=== PATIENT | male | born 1980 | race Hispanic/Latino ===

== ENCOUNTER 2022-09-13 18:01 | Inpatient (IN) | payer SELFPAY ==
[2022-09-13 21:40] VITALS: BMI 27.8
[2022-09-13 22:59] LABS: SARS-CoV-2 NAA Rapid Test Not Detected (NotDetected)
[2022-09-13] MEDS ORDERED: Acetaminophen 325 MG TAB PO PRN (23:17)
[2022-09-13] MEDS ORDERED: Dextrose 5% in Water 1,000 ML IV PRN (23:17)
[2022-09-13] MEDS ORDERED: Ipratropium/Albuterol 3 ML NEB NEB PRN (23:17)
[2022-09-13] MEDS ORDERED: hydrALAZINE 20 MG/ML VIAL SLOW IVP PRN (23:17)
[2022-09-13] MEDS ORDERED: Ondansetron PF 4 MG/2 ML Vial IVP PRN (23:17)
[2022-09-13] MEDS ORDERED: Dextrose 50% Abboject 50 ML SYRINGE SLOW IVP PRN (23:17)
[2022-09-13] MEDS ORDERED: Promethazine HCl 25 MG/ML VIAL IM PRN (23:17)
[2022-09-13] MEDS ORDERED: CEFAZOLIN 2 GM in Sodium Chloride 0.9% 100 ML IVPB SCH (23:30)
[2022-09-13] MEDS: Sodium Chloride 0.9% 1,000 ML IV SCH (23:42)
[2022-09-13] MEDS: Morphine 2 MG/ML VIAL SLOW IVP PRN (23:50)
[2022-09-14] MEDS: Morphine 2 MG/ML VIAL SLOW IVP PRN ×4 (03:33→19:56)
[2022-09-14 06:14] LABS: #Basophils 0.1 thou/uL (0.0-0.2); #Eosinphils 0.6 thou/uL (0.0-0.7); #Monocytes 0.6 thou/uL (0.11-0.59); #Neutrophils 3.8 thou/uL (1.40-6.50); %Basophils 0.7 % (0.0-1.0); %Eosinophils 7.1 % (0.0-10.0); %Lymphocytes 44.3 % (21.0-51.0); %Monocytes 6.6 % (0.0-10.0); %Neutrophils 41.3 % (42.0-75.0); Hemoglobin 14.5 g/dL (14.0-18.0); Mean Corpuscular HGB CONC 32.4 g/dL (32.0-36.0); Mean Corpuscular Hemoglobin 30.1 pg (27.0-31.0); Mean Corpuscular Volume 92.8 fl (78.0-98.0); Mean Platelet Volume 8.2 fL (7.4-10.4); Platelet Count 227 10x3/uL (130-400); RBC Distribution Width 11.9 % (11.5-14.5); Red Blood Cell (RBC) Count 4.81 mill/uL (4.70-6.10); White Blood Cell (WBC) Count 9.1 10x3/uL (4.8-10.8)
[2022-09-14] MEDS ORDERED: Dexamethasone 20 MG/5 ML VIAL ONE (06:30)
[2022-09-14] MEDS ORDERED: Ondansetron PF 4 MG/2 ML Vial ONE (06:30)
[2022-09-14] MEDS ORDERED: PHENYLEPHRINE-NS 100 MCG/ML 10 ML SYRINGE ONE (06:30)
[2022-09-14] MEDS ORDERED: NEOSTIGMINE 3 MG/3 ML SYR 3 MG/3 ML SYRINGE ONE (06:30)
[2022-09-14] MEDS ORDERED: ePHEDrine 50 MG/ML VIAL ONE (06:30)
[2022-09-14] MEDS ORDERED: Lidocaine 1% PF 5 ML VIAL ONE (06:30)
[2022-09-14] MEDS ORDERED: Rocuronium Bromide 10 MG/ML (10ML VIAL) ONE (06:30)
[2022-09-14] MEDS ORDERED: PROPOFOL 200 MG/20 ML VIAL ONE (06:30)
[2022-09-14] MEDS ORDERED: Glycopyrrolate 0.2 MG/ML 5 ML SYRINGE ONE (06:30)
[2022-09-14] MEDS ORDERED: Bupivacaine/Epinephrine 0.25% 30 ML VIAL ONE (06:32)
[2022-09-14 06:33] LABS: Anion Gap 11 mmol/L (10-20); BUN (Urea Nitrogen) 9 mg/dL (8.9-20.6); Calc. Creatinine Clearance 168 mL/min (70-130); Calcium 9.3 mg/dL (7.8-10.44); Carbon Dioxide 30 mmol/L (22-29); Chloride 106 mmol/L (98-107); Estimated GFR 118; Glucose 101 mg/dL (70-105); Potassium 4.6 mmol/L (3.5-5.1); Sodium 142 mmol/L (136-145)
[2022-09-14] MEDS ORDERED: fentaNYL PF 100 MCG/2 ML SYRINGE ONE ×2 (06:57→07:17)
[2022-09-14] MEDS ORDERED: SUGAMMADEX SODIUM 200 MG/2 ML VIAL ONE (06:58)
[2022-09-14] MEDS ORDERED: Dexmedetomidine 200 MCG/2 ML VIAL ONE (06:58)
[2022-09-14] MEDS ORDERED: CEFAZOLIN 2 GM VIAL ONE (07:03)
[2022-09-14] MEDS ORDERED: Sodium Chloride 0.9% 100 ML ONE (07:03)
[2022-09-14] MEDS ORDERED: Midazolam HCl 2 mg/2 ml Vial ONE (07:17)
[2022-09-14] MEDS ORDERED: Methocarbamol 1 GM in Sodium Chloride 0.9% 100 ML IVPB PRN (09:33)
[2022-09-14] MEDS ORDERED: Promethazine HCl 25 MG/ML VIAL IM PRN (09:36)
[2022-09-14] MEDS ORDERED: HYDROmorphone 2 MG/ML VIAL SLOW IVP PRN (09:36)
[2022-09-14] MEDS ORDERED: Ondansetron HCl/PF 4 MG/2 ML Vial IVP PRN (09:36)
[2022-09-14] MEDS ORDERED: Fentanyl 100 MCG/2 ML VIAL ONE (09:55)
[2022-09-14] MEDS: Famotidine 20 MG TAB PO SCH ×2 (10:57→21:05)
[2022-09-14] MEDS: Sodium Chloride 0.9% 1,000 ML IV SCH ×2 (10:59→21:04)
[2022-09-15] MEDS: Morphine 2 MG/ML VIAL SLOW IVP PRN ×2 (00:49→05:49)
[2022-09-15] MEDS: Sodium Chloride 0.9% 1,000 ML IV SCH (05:53)
[2022-09-15 06:25] LABS: #Lymphocytes 2.6 thou/uL (1.20-3.40); #Monocytes 0.8 thou/uL (0.11-0.59); #Neutrophils 7.9 thou/uL (1.40-6.50); %Basophils 0.4 % (0.0-1.0); %Eosinophils 0.1 % (0.0-10.0); %Lymphocytes 22.9 % (21.0-51.0); %Neutrophils 69.7 % (42.0-75.0); Hemoglobin 12.7 g/dL (14.0-18.0); Mean Corpuscular HGB CONC 32.8 g/dL (32.0-36.0); Mean Corpuscular Hemoglobin 30.4 pg (27.0-31.0); Mean Corpuscular Volume 92.6 fl (78.0-98.0); Mean Platelet Volume 8.6 fL (7.4-10.4); Platelet Count 218 10x3/uL (130-400); RBC Distribution Width 11.9 % (11.5-14.5); Red Blood Cell (RBC) Count 4.18 mill/uL (4.70-6.10); White Blood Cell (WBC) Count 11.4 10x3/uL (4.8-10.8)
[2022-09-15 06:51] LABS: Anion Gap 9 mmol/L (10-20); BUN (Urea Nitrogen) 10 mg/dL (8.9-20.6); Calc. Creatinine Clearance 168 mL/min (70-130); Calcium 8.5 mg/dL (7.8-10.44); Carbon Dioxide 29 mmol/L (22-29); Chloride 106 mmol/L (98-107); Estimated GFR 118; Glucose 99 mg/dL (70-105); Magnesium 1.6 mg/dL (1.6-2.6); Phosphorus 3.5 mg/dL (2.3-4.7); Potassium 3.6 mmol/L (3.5-5.1); Sodium 140 mmol/L (136-145)
[2022-09-15] MEDS: Famotidine 20 MG TAB PO SCH (09:16)
[2022-09-15] MEDS ORDERED: Magnesium 2 GM/50 ML(in water) 2 GM in Premix Bag 1 BAG IVPB SCH (09:30)
[2022-09-15] MEDS ORDERED: traMADol HCl 50 MG TAB PO PRN (12:13)
[2022-09-15 17:16] VITALS: BP 117/79; TEMP 98
[2022-09-15] MEDS ORDERED: traMADol HCl 50 MG TAB PO SCH (18:00)
== END 2022-09-15 17:00 | disposition home or self-care (01) | DRG 355 ==
LOC: OBSVTOIN 18:01 → SURG B 18:01
PROVIDERS: ADMIT Surgery; ATTEND Surgery
PROC: 0WQF0ZZ Repair Abdominal Wall, Open Approach (ICD-10-PCS; principal; 2022-09-14)
DX: K42.0 Umbilical hernia with obstruction, without gangrene (principal); Z20.822 Contact with and (suspected) exposure to COVID-19; F41.9 Anxiety disorder, unspecified; Z79.899 Other long term (current) drug therapy
CPT/HCPCS: 36415; 80048; 83735; 84100; 85025; J1100; J1650; J2250; J2272; J2405; J2704; J3010; J3475; J3490; J7050; U0002

== ENCOUNTER 2023-08-07 20:51 | Inpatient (IN) | payer BC, SELFPAY ==
[~2023-08-07 20:51] MED LIST: Iopamidol-370 76% 500 ML MDV (1 ML CHARGE) ONE
[2023-08-07 21:49] LABS: Anion Gap 20 mmol/L (10-20); BUN (Urea Nitrogen) 12 mg/dL (8.9-20.6); Calc. Creatinine Clearance 0 mL/min (70-130); Calcium 8.6 mg/dL (7.8-10.44); Carbon Dioxide 18 mmol/L (22-29); Chloride 107 mmol/L (98-107); Estimated GFR 114; Glucose 134 mg/dL (70-105); Potassium 3.5 mmol/L (3.5-5.1); Sodium 141 mmol/L (136-145)
[2023-08-07 21:50] LABS: Acetaminophen Less than 10 mcg/mL (10.0-30.0); Alcohol 124.3 mg/dL (Less than 10); Lipase 30 U/L (8-78); Salicylate Less than 8.0 mg/dL (15.0-30.0)
[2023-08-07 21:51] LABS: INR-International Normal Ratio 1.1; PTT 26.5 sec (22.9-36.1); Prothrombin Time 14.5 sec (12.0-14.7)
[2023-08-07 21:52] LABS: Hematocrit 43.1 % (42.0-52.0); Hemoglobin 14.4 g/dL (14.0-18.0); Mean Corpuscular HGB CONC 33.4 g/dL (32.0-36.0); Mean Corpuscular Hemoglobin 30.3 pg (27.0-31.0); Mean Corpuscular Volume 90.5 fl (78.0-98.0); Mean Platelet Volume 10.5 fL (7.4-10.4); Platelet Count 324 10x3/uL (130-400); RBC Distribution Width 12.3 % (11.5-14.5); Red Blood Cell (RBC) Count 4.76 mill/uL (4.70-6.10); White Blood Cell (WBC) Count 19.5 10x3/uL (4.8-10.8)
[2023-08-07 21:53] LABS: Delete Auto Diff?? YES; Manual Diff?? YES
[2023-08-07 22:05] LABS: Critical Call Chem-Lactate NUR.NKE@2205
[2023-08-07 22:20] LABS: Band 1 % (5-11); Burr Cells SLIGHT = 2-5 cells HPF (0-1); CellaVision Operator ID lab.sh2; Eosinophils 4 % (0-10); Lymphocytes 28 % (21-51); Monocytes 2 % (0-10); Neutrophil 64 % (42-75); Platelet Adequacy Comment Platelets Normal; Poikilocytosis SLIGHT = 6-15 cells HPF (0-5); Polychromasia SLIGHT = 2-3 cells HPF (0-2); Smudge Cells 9.2 %; Tear Drops SLIGHT = 2-5 cells HPF (0-1); Total Cell Count 98
[2023-08-07] MEDS ORDERED: Boostrix 0.5 ML (Tdap) VIAL (>/=7 yrs of age) ONE (22:38)
[2023-08-07] MEDS ORDERED: Sodium Chloride 0.9% 100 ML ONE (22:38)
[2023-08-07] MEDS ORDERED: CEFAZOLIN 2 GM VIAL ONE (22:38)
[2023-08-07 22:45] LABS: Bacteria/HPF None Seen HPF (None Seen); Bilirubin Negative (Negative); Blood, Urine Trace (Negative); CAUTI Indications for Culture Alt mental st,lethar; Clarity Clear (Clear); Glucose, Urine (Dipstick) 30 mg/dL (Negative); Ketone, Urine Negative (Negative); Leukocyte Negative Leu/uL (Negative); Nitrite Negative (Negative); Protein, Urine (Dipstick) 30 mg/dL (Neg-Trace); RBC/HPF 0-3 HPF (0-3); Specific Gravity, Urine 1.026 (1.002-1.036); Squamous Epithelial None Seen HPF (0-3); Urobilinogen Normal mg/dL (Less than 2); WBC/HPF 0-3 HPF (0-3); pH, Urine 6.5 (5.0-9.0)
[2023-08-07] MEDS ORDERED: Tranexamic Acid 1,000 MG/10 ML VIAL ONE ×2 (22:45→22:46)
[2023-08-07 22:47] LABS: Urine Culture Reflex No No
[2023-08-07 22:51] LABS: Amphetamine Not Detected (NotDetected); Barbiturates Screen Not Detected (NotDetected); Benzodiazepine Screen Not Detected (NotDetected); Cocaine Metabolite Screen Not Detected (NotDetected); Methadone Not Detected (NotDetected); Methamphetamine Not Detected (NotDetected); Opiate Screen Not Detected (NotDetected); Oxycodone Screen Not Detected (NotDetected); Phencyclidine (PCP) Not Detected (NotDetected); THC/Cannabinoid Screen Not Detected (NotDetected); Tricyclic Screen Not Detected (NotDetected)
[2023-08-07 22:52] LABS: Hematocrit 41.9 % (42.0-52.0); Hemoglobin 14.1 g/dL (14.0-18.0); Manual Diff?? YES; Mean Corpuscular HGB CONC 33.7 g/dL (32.0-36.0); Mean Corpuscular Hemoglobin 30.5 pg (27.0-31.0); Mean Corpuscular Volume 90.7 fl (78.0-98.0); Mean Platelet Volume 9.8 fL (7.4-10.4); Platelet Count 270 10x3/uL (130-400); RBC Distribution Width 12.5 % (11.5-14.5); Red Blood Cell (RBC) Count 4.62 mill/uL (4.70-6.10); White Blood Cell (WBC) Count 28.9 10x3/uL (4.8-10.8)
[2023-08-07 22:55] LABS: Delete Auto Diff?? YES
[2023-08-07 23:12] LABS: Band 4 % (5-11); Lymphocytes 8 % (21-51); Monocytes 2 % (0-10); Neutrophil 81 % (42-75); Reactive Lymphocytes 5 % (0-10)
[2023-08-07 23:13] LABS: Polychromasia SLIGHT = 2-3 cells (100X) (0-2/hpf)
[2023-08-07 23:14] LABS: Burr Cells SLIGHT = 2-5 cells (100X) (0-1/hpf); Ovalocytes SLIGHT = 2-5 cells (100X) (0-1/hpf)
[2023-08-07 23:15] LABS: Platelet Adequacy Comment Appears Adequate
[2023-08-07] MEDS ORDERED: TETANUS, DIPHTHERIA TOX,ADULT (TDVAX) 0.5 ML VIAL IM ONE (23:35)
[2023-08-07] MEDS ORDERED: hydrALAZINE 20 MG/ML VIAL SLOW IVP PRN (23:35)
[2023-08-07] MEDS ORDERED: Glucagon 1 MG/ML KIT IM PRN (23:35)
[2023-08-07] MEDS ORDERED: Dextrose 50% Abboject 50 ML SYRINGE SLOW IVP PRN (23:35)
[2023-08-07] MEDS ORDERED: Dextrose 5% in Water 1,000 ML IV PRN (23:35)
[2023-08-07] MEDS ORDERED: Ondansetron PF 4 MG/2 ML Vial IVP PRN (23:35)
[2023-08-08 01:28] LABS: Critical Call Chem-Lactate NUR.JLE@0128
[2023-08-08] MEDS: Morphine 2 MG/ML VIAL SLOW IVP PRN ×5 (01:40→21:07)
[2023-08-08] MEDS: Lactated Ringer's 1,000 ML IV SCH ×4 (02:30→23:10)
[2023-08-08 02:37] VITALS: BMI 27.5
[2023-08-08 04:21] LABS: #Monocytes 1.6 thou/uL (0.11-0.59); #Neutrophils 16.8 thou/uL (1.40-6.50); %Basophils 0.2 % (0.0-1.0); %Eosinophils 0.1 % (0.0-10.0); %Lymphocytes 4.7 % (21.0-51.0); %Monocytes 8.3 % (0.0-10.0); %Neutrophils 86.2 % (42.0-75.0); Hematocrit 47.6 % (42.0-52.0); Hemoglobin 15.2 g/dL (14.0-18.0); Mean Corpuscular HGB CONC 31.9 g/dL (32.0-36.0); Mean Corpuscular Hemoglobin 30.2 pg (27.0-31.0); Mean Platelet Volume 10.4 fL (7.4-10.4); Platelet Count 256 10x3/uL (130-400); Red Blood Cell (RBC) Count 5.03 mill/uL (4.70-6.10); White Blood Cell (WBC) Count 19.4 10x3/uL (4.8-10.8)
[2023-08-08 04:23] LABS: Mean Corpuscular Volume 94.6 fl (78.0-98.0)
[2023-08-08 04:38] LABS: ALT (SGPT) 29 U/L (8-55); AST (SGOT) 64 U/L (5-34); Albumin 3.6 g/dL (3.5-5.0); Alkaline Phosphatase 83 U/L (40-110); Anion Gap 20 mmol/L (10-20); BUN (Urea Nitrogen) 12 mg/dL (8.9-20.6); Bilirubin, Total 0.7 mg/dL (0.2-1.2); Calc. Creatinine Clearance 139 mL/min (70-130); Calcium 8.2 mg/dL (7.8-10.44); Carbon Dioxide 15 mmol/L (22-29); Chloride 109 mmol/L (98-107); Estimated GFR 112; Globulin 3.4 g/dL (2.4-3.5); Glucose 121 mg/dL (70-105); Potassium 5.2 mmol/L (3.5-5.1); Sodium 139 mmol/L (136-145)
[2023-08-08] MEDS ORDERED: CEFAZOLIN 2 GM in Sodium Chloride 0.9% 100 ML IVPB SCH (06:00)
[2023-08-08] MEDS ORDERED: Enoxaparin 30 MG (0.3 mL) SYRINGE SC SCH (09:00)
[2023-08-08] MEDS ORDERED: fentaNYL PF 100 MCG/2 ML SYRINGE ONE ×2 (09:34→10:37)
[2023-08-08] MEDS ORDERED: PROPOFOL 20 ML ONE ×2 (09:34→09:51)
[2023-08-08] MEDS ORDERED: Lidocaine 1% PF 5 ML VIAL ONE (09:34)
[2023-08-08] MEDS ORDERED: Ondansetron PF 4 MG/2 ML Vial ONE ×2 (09:34→12:16)
[2023-08-08] MEDS ORDERED: CEFAZOLIN 1 GM VIAL ONE (10:00)
[2023-08-08] MEDS ORDERED: PHENYLEPHRINE-NS 100 MCG/ML 10 ML SYRINGE ONE (10:12)
[2023-08-08] MEDS ORDERED: HYDROmorphone 2 MG/ML VIAL ONE (12:49)
[2023-08-08] MEDS ORDERED: Promethazine HCl 25 MG/ML VIAL IM PRN (13:36)
[2023-08-08] MEDS ORDERED: Ondansetron HCl/PF 4 MG/2 ML Vial IVP PRN (13:36)
[2023-08-08] MEDS ORDERED: HYDROmorphone 2 MG/ML VIAL SLOW IVP PRN (13:36)
[2023-08-08] MEDS ORDERED: Ketorolac Tromethamine 30 MG/ML VIAL IVP PRN (13:36)
[2023-08-08] MEDS ORDERED: Ipratropium/Albuterol 3 ML NEB ONE (13:50)
[2023-08-08] MEDS ORDERED: Ketorolac Tromethamine 30 MG (1 mL) VIAL ONE (14:07)
[2023-08-08] MEDS: Famotidine/PF 20 mg/2ml Vial SLOW IVP SCH ×2 (15:52→21:07)
[2023-08-08] MEDS: CEFAZOLIN 2 GM in Sodium Chloride 0.9% 100 ML IVPB SCH ×2 (15:56→21:07)
[2023-08-08] MEDS: HYDROcodone/Acetaminophen 7.5/325 mg Tablet PO PRN (22:15)
[2023-08-09] MEDS: Morphine 2 MG/ML VIAL SLOW IVP PRN ×2 (04:07→12:03)
[2023-08-09 04:20] LABS: #Basophils 0.1 thou/uL (0.0-0.2); #Monocytes 1.1 thou/uL (0.11-0.59); #Neutrophils 11.5 thou/uL (1.40-6.50); %Basophils 0.4 % (0.0-1.0); %Eosinophils 0.1 % (0.0-10.0); %Lymphocytes 16.7 % (21.0-51.0); %Monocytes 7.1 % (0.0-10.0); %Neutrophils 75.4 % (42.0-75.0); Mean Corpuscular HGB CONC 32.7 g/dL (32.0-36.0); Mean Corpuscular Hemoglobin 29.8 pg (27.0-31.0); Mean Corpuscular Volume 91.2 fl (78.0-98.0); Mean Platelet Volume 10.2 fL (7.4-10.4); Platelet Count 201 10x3/uL (130-400); RBC Distribution Width 13.4 % (11.5-14.5); Red Blood Cell (RBC) Count 3.52 mill/uL (4.70-6.10); White Blood Cell (WBC) Count 15.2 10x3/uL (4.8-10.8)
[2023-08-09 04:24] LABS: Hematocrit 32.1 % (42.0-52.0); Hemoglobin 10.5 g/dL (14.0-18.0)
[2023-08-09] MEDS: CEFAZOLIN 2 GM in Sodium Chloride 0.9% 100 ML IVPB SCH (05:51)
[2023-08-09] MEDS: Famotidine/PF 20 mg/2ml Vial SLOW IVP SCH ×2 (08:34→20:47)
[2023-08-09] MEDS: Lactated Ringer's 1,000 ML IV SCH ×2 (08:34→16:46)
[2023-08-09] MEDS: Enoxaparin 40 MG (0.4 mL) SYRINGE SC SCH (08:34)
[2023-08-09] MEDS: HYDROcodone/Acetaminophen 7.5/325 mg Tablet PO PRN ×4 (08:34→20:48)
[2023-08-09 10:42] LABS: Anion Gap 9 mmol/L (10-20); BUN (Urea Nitrogen) 9 mg/dL (8.9-20.6); Calc. Creatinine Clearance 193 mL/min (70-130); Calcium 8.1 mg/dL (7.8-10.44); Carbon Dioxide 28 mmol/L (22-29); Chloride 106 mmol/L (98-107); Estimated GFR 121; Glucose 119 mg/dL (70-105); Potassium 3.7 mmol/L (3.5-5.1); Sodium 139 mmol/L (136-145)
[2023-08-10] MEDS: HYDROcodone/Acetaminophen 7.5/325 mg Tablet PO PRN ×2 (00:44→17:03)
[2023-08-10] MEDS: Lactated Ringer's 1,000 ML IV SCH ×3 (00:46→17:06)
[2023-08-10 04:43] LABS: #Basophils 0.1 thou/uL (0.0-0.2); #Eosinphils 0.2 thou/uL (0.0-0.7); #Monocytes 0.8 thou/uL (0.11-0.59); #Neutrophils 9.7 thou/uL (1.40-6.50); %Basophils 0.4 % (0.0-1.0); %Eosinophils 1.7 % (0.0-10.0); %Lymphocytes 15.5 % (21.0-51.0); %Monocytes 6.3 % (0.0-10.0); %Neutrophils 75.6 % (42.0-75.0); Hematocrit 28.5 % (42.0-52.0); Hemoglobin 9.4 g/dL (14.0-18.0); Mean Corpuscular Hemoglobin 30.3 pg (27.0-31.0); Mean Corpuscular Volume 91.9 fl (78.0-98.0); Mean Platelet Volume 10.4 fL (7.4-10.4); Platelet Count 200 10x3/uL (130-400); White Blood Cell (WBC) Count 12.8 10x3/uL (4.8-10.8)
[2023-08-10] MEDS: Famotidine/PF 20 mg/2ml Vial SLOW IVP SCH (08:38)
[2023-08-10] MEDS: Enoxaparin 40 MG (0.4 mL) SYRINGE SC SCH (08:39)
[2023-08-10] MEDS: Morphine 2 MG/ML VIAL SLOW IVP PRN (08:45)
[2023-08-10] MEDS: Ketorolac Tromethamine 10 MG TAB PO SCH ×2 (13:22→18:09)
[2023-08-10] MEDS: Famotidine 20 MG TAB PO SCH (21:38)
[2023-08-10] MEDS: HYDROcodone/Acetaminophen 5/325 mg Tablet PO PRN (21:38)
[2023-08-11] MEDS: Ketorolac Tromethamine 10 MG TAB PO SCH ×5 (00:31→23:30)
[2023-08-11] MEDS: Lactated Ringer's 1,000 ML IV SCH ×3 (00:32→16:11)
[2023-08-11] MEDS ORDERED: Polyethylene Glycol 3350 17 GM Packet PO PRN (04:43)
[2023-08-11 05:48] LABS: #Basophils 0.1 thou/uL (0.0-0.2); #Eosinphils 0.6 thou/uL (0.0-0.7); #Monocytes 0.8 thou/uL (0.11-0.59); #Neutrophils 10.1 thou/uL (1.40-6.50); %Basophils 0.4 % (0.0-1.0); %Eosinophils 4.5 % (0.0-10.0); %Lymphocytes 15.1 % (21.0-51.0); %Monocytes 5.8 % (0.0-10.0); %Neutrophils 73.5 % (42.0-75.0); Hematocrit 28.5 % (42.0-52.0); Hemoglobin 9.3 g/dL (14.0-18.0); Mean Corpuscular HGB CONC 32.6 g/dL (32.0-36.0); Mean Corpuscular Hemoglobin 29.7 pg (27.0-31.0); Mean Corpuscular Volume 91.1 fl (78.0-98.0); Mean Platelet Volume 10.1 fL (7.4-10.4); Platelet Count 223 10x3/uL (130-400); RBC Distribution Width 12.6 % (11.5-14.5); Red Blood Cell (RBC) Count 3.13 mill/uL (4.70-6.10); White Blood Cell (WBC) Count 13.7 10x3/uL (4.8-10.8)
[2023-08-11] MEDS: HYDROcodone/Acetaminophen 5/325 mg Tablet PO PRN ×3 (09:31→23:33)
[2023-08-11] MEDS: Famotidine 20 MG TAB PO SCH ×2 (09:32→21:29)
[2023-08-11] MEDS: Enoxaparin 40 MG (0.4 mL) SYRINGE SC SCH (09:32)
[2023-08-11] MEDS: Docusate 100 MG CAP PO SCH ×2 (09:32→21:30)
[2023-08-12] MEDS: Lactated Ringer's 1,000 ML IV SCH ×2 (01:36→08:22)
[2023-08-12 04:49] LABS: #Basophils 0.1 thou/uL (0.0-0.2); #Neutrophils 8.4 thou/uL (1.40-6.50); %Basophils 0.5 % (0.0-1.0); %Eosinophils 7.7 % (0.0-10.0); %Lymphocytes 16.7 % (21.0-51.0); %Monocytes 7.7 % (0.0-10.0); %Neutrophils 65.9 % (42.0-75.0); Hematocrit 27.5 % (42.0-52.0); Hemoglobin 9.1 g/dL (14.0-18.0); Mean Corpuscular HGB CONC 33.1 g/dL (32.0-36.0); Mean Corpuscular Hemoglobin 29.8 pg (27.0-31.0); Mean Corpuscular Volume 90.2 fl (78.0-98.0); Mean Platelet Volume 9.2 fL (7.4-10.4); Platelet Count 256 10x3/uL (130-400); RBC Distribution Width 12.4 % (11.5-14.5); Red Blood Cell (RBC) Count 3.05 mill/uL (4.70-6.10); White Blood Cell (WBC) Count 12.8 10x3/uL (4.8-10.8)
[2023-08-12 05:20] LABS: Anion Gap 8 mmol/L (10-20); BUN (Urea Nitrogen) 12 mg/dL (8.9-20.6); Calc. Creatinine Clearance 199 mL/min (70-130); Calcium 8.1 mg/dL (7.8-10.44); Carbon Dioxide 29 mmol/L (22-29); Chloride 106 mmol/L (98-107); Estimated GFR 123; Glucose 114 mg/dL (70-105); Potassium 3.8 mmol/L (3.5-5.1); Sodium 139 mmol/L (136-145)
[2023-08-12] MEDS: HYDROcodone/Acetaminophen 5/325 mg Tablet PO PRN ×2 (06:28→14:44)
[2023-08-12] MEDS: Ketorolac Tromethamine 10 MG TAB PO SCH ×2 (06:28→12:00)
[2023-08-12] MEDS: Famotidine 20 MG TAB PO SCH (08:21)
[2023-08-12] MEDS: Enoxaparin 40 MG (0.4 mL) SYRINGE SC SCH (08:21)
[2023-08-12] MEDS: Docusate 100 MG CAP PO SCH (08:21)
[2023-08-12 12:56] VITALS: BP 126/86; TEMP 98.3
== END 2023-08-12 14:57 | disposition home or self-care (01) | DRG 493 ==
LOC: ERS 20:51 → CCU 23:40 → IMCU/EMU 08-08 16:01 → SURG A 08-09 13:49
PROVIDERS: ADMIT Surgery; ATTEND Surgery
PROC: 30233N1 Transfusion of Nonautologous Red Blood Cells into Peripheral Vein, Percutaneous Approach (ICD-10-PCS; 2023-08-07)
PROC: 0QSH06Z Reposition Left Tibia with Intramedullary Internal Fixation Device, Open Approach (ICD-10-PCS; principal; 2023-08-08)
PROC: 0QSL04Z Reposition Right Tarsal with Internal Fixation Device, Open Approach (ICD-10-PCS; 2023-08-08)
PROC: 0RS Upper Joints, Reposition (ICD-10-PCS; 2023-08-08)
DX: S82.262A Displaced segmental fracture of shaft of left tibia, initial encounter for closed fracture (principal); S27.322A Contusion of lung, bilateral, initial encounter; S43.205A Unspecified dislocation of left sternoclavicular joint, initial encounter; S82.141A Displaced bicondylar fracture of right tibia, initial encounter for closed fracture; S82.402A Unspecified fracture of shaft of left fibula, initial encounter for closed fracture; S82.401A Unspecified fracture of shaft of right fibula, initial encounter for closed fracture; I95.9 Hypotension, unspecified; V49.9XXA Car occupant (driver) (passenger) injured in unspecified traffic accident, initial encounter
CPT/HCPCS: 36415; 36430; 70450; 71045; 71260; 72125; 74177; 80048; 80053; 80306; 80307; 81001; 83605; 83690; 85025; 85610; 85730; 86850; 86900; 86901; 90471; 90715; 93005; 96374; 96375; C1713; G0390; J0690; J1170; J1650; J1885; J2272; J2405; J2704; J3490; J7120; J7620; P9016; Q9967; S0028

== ENCOUNTER 2024-07-10 09:08 | Outpatient (CLI) | payer BC | END 2024-07-10 09:09 | disposition home or self-care (01) | LOC: BICRAD 09:08 | PROVIDERS: ATTEND Orthopaedic Surgery | DX: S82.202D Unspecified fracture of shaft of left tibia, subsequent encounter for closed fracture with routine healing (principal); S82.402D Unspecified fracture of shaft of left fibula, subsequent encounter for closed fracture with routine healing ==